=== PATIENT | female | born 1965 | race American Indian/Alaskan Native ===

== ENCOUNTER 2017-01-30 06:06 | Day surgery (SDC) | payer MEDICAID ==
--- NOTE | 2017-01-30 07:25 | Anesthesia Consultation ---
Anesthesia Consult and Med Hx Date of service: 01/30/17 - Airway Anesthetic Teeth Evaluation: Good ROM Head & Neck: Adequate Mental/Hyoid Distance: Adequate Mallampati Class: Class III Intubation Access Assessment: Possibly Difficult - Pre-Operative Health Status ASA Pre-Surgery Classification: ASA3 Proposed Anesthetic Plan: MAC - Cardiovascular System Hx Hypertension: Yes - Endocrine Hx Renal Disease: No (lupus) Hx Non-Insulin Dependent Diabetes: Yes - Other Systems Hx Obesity: Yes (BMI 49.9)
[2017-01-30] MEDS ORDERED: DIPRIVAN 10 MG/ML IV ONE ×3 (07:26→11:18)
--- NOTE | 2017-01-30 07:26 | Anesthesia Day of Surgery ---
Anesthesia Day of Surgery - Day of Surgery Patient Examined: Yes Patient H&P Reviewed: Yes Patient is NPO: Yes Beta Blockers: Yes
[2017-01-30] MEDS ORDERED: NACL 0.9% 1000 ML 1,000 ML IV SCH (08:00)
--- NOTE | 2017-01-30 08:34 | Operative Report ---
Operative Report Operative Report: OPERATIVE REPORT - EGD DATE 01/30/17 SURGERY: Upper endoscopy. SURGEON: Velma Burks M.D. PRE OP DX: dyspepsia POST OP DX: hiatal hernia TYPE OF ANESTHESIA: MAC. ESTIMATED BLOOD LOSS: None. COMPLICATIONS: None. SPECIMENS REMOVED: None. FINDINGS: 1. Small hiatal hernia. 2. Otherwise, normal esophagus, stomach and first portion of duodenum. INDICATIONS:INDICATION FOR PROCEDURE: Patient is a 51-year-old female with a long history of morbid obesity. She is planned to have a weight loss procedure and is here for preoperative planning EGD. We are looking for any pathology that will delay or prohibit her procedure. PROCEDURE DETAILS: After consent was reviewed, patient was taken back to the operating room where patient was placed in the left lateral decubitus position and a bite block was placed in the mouth. After a time-out was called, MAC anesthesia was initiated. I then passed the endoscope into her oropharynx, into her esophagus, visualized the entire esophagus, which was all within normal limits. I then visualized the stomach and the first portion of the duodenum and there were no abnormalities I could clearly visualize. I then retroflexed the scope in the stomach and visualized the hiatus and I could see a small hiatal hernia. I then desufflated the stomach and removed the endoscope. Patient tolerated procedure well and was transferred to recovery room in good and stable condition.
--- NOTE | 2017-01-30 08:37 | Discharge Summary ---
Providers - Providers Date of discharge: 01/30/17 Attending physician: KEMI BECK Hospitalization Condition: Good Procedures: egd Disposition: DC-01 TO HOME OR SELFCARE Core Measure Documentation - Palliative Care Palliative Care/ Comfort Measures: Not Applicable - Core Measures Any of the following diagnoses?: none Exam - Physical Exam Narrative exam: unchanged from pre-op - Constitutional Vitals: Temp Pulse Resp BP Pulse Ox 97.3 F L 68 16 140/88 98 01/30/17 07:59 01/30/17 07:59 01/30/17 07:59 01/30/17 07:59 01/30/17 07:59 Plan Activity: no restrictions Weight Bearing Status: Full Weight Bearing Diet: regular
--- NOTE | 2017-01-30 08:54 | Post Anesthesia Evaluation ---
- Post Anesthesia Evaluation Patient Participated: Yes Airway Patent: Yes Stable Respiratory Function: Yes Nausea/Vomiting: No Temp > 96.8F: Yes Pain Manageable: Yes Adequeate Hydration: Yes Anesthesia Complications: No Block Receding Appropriately: Not Applicable Patient on Ventilator: No
[2017-01-30 09:16] VITALS: BP 159/97
== END 2017-01-30 06:07 | disposition home or self-care (01) ==
LOC: GIO 06:06
PROVIDERS: ATTEND Surgery
DX: K44.9 Diaphragmatic hernia without obstruction or gangrene (principal); K21.9 Gastro-esophageal reflux disease without esophagitis; E11.9 Type 2 diabetes mellitus without complications; I10 Essential (primary) hypertension; E78.00 Pure hypercholesterolemia, unspecified; M06.9 Rheumatoid arthritis, unspecified; E66.01 Morbid (severe) obesity due to excess calories; Z68.42 Body mass index [BMI] 45.0-49.9, adult; Z79.899 Other long term (current) drug therapy; Z79.84 Long term (current) use of oral hypoglycemic drugs
CPT/HCPCS: 43235; 82962; J2704; J7030

== ENCOUNTER 2017-02-06 12:00 | Inpatient (IN) | payer MEDICAID ==
[2017-02-07] MEDS ORDERED: VERSED IV NR (06:00)
[2017-02-07] MEDS ORDERED: TRANSDERM-SCOP TD NR ×2 (06:00→07:00)
[2017-02-07] MEDS ORDERED: PEPCID IV NR (06:00)
[2017-02-07] MEDS ORDERED: NACL 0.9% 1000 ML 1,000 ML IV SCH (06:00)
[2017-02-07] MEDS ORDERED: PEPCID IV SCH (06:18)
[2017-02-07] MEDS ORDERED: NACL BACTERIOSTATIC INFILTRATI ONE (06:35)
[2017-02-07] MEDS ORDERED: FLAGYL 500 MG/100 ML 500 MG/100 ML BAG IV NR (07:00)
[2017-02-07] MEDS ORDERED: LOVENOX SUB-Q NR (07:00)
[2017-02-07] MEDS ORDERED: ANCEF/STERILE WATER 2 GM/20 ML IV NR (07:00)
--- NOTE | 2017-02-07 07:11 | Anesthesia Consultation ---
Anesthesia Consult and Med Hx Date of service: 02/07/17 - Airway Anesthetic Teeth Evaluation: Good ROM Head & Neck: Adequate Mental/Hyoid Distance: Adequate Mallampati Class: Class II Intubation Access Assessment: Probably Good - Pulmonary Exam CTA: Yes - Cardiac Exam Cardiac Exam: RRR - Pre-Operative Health Status ASA Pre-Surgery Classification: ASA3 Proposed Anesthetic Plan: General - Pulmonary Hx Smoking: Yes (smoked for 30 years,quit 2 months ago) Hx Asthma: Yes Hx Sleep Apnea: Yes (no cpap needed) - Cardiovascular System Hx Hypertension: Yes ( 5 years) Hx Peripheral Vascular Disease: No - Gastrointestinal Hx Gastroesophageal Reflux Disease: Yes (prn omeprazole) - Endocrine Hx Renal Disease: No (lupus) Hx Non-Insulin Dependent Diabetes: Yes - Hematic Hx Anemia: No Hx Sickle Cell Disease: Yes (Trait) - Other Systems Hx Cancer: No Hx Obesity: Yes (BMI 49.9)
--- NOTE | 2017-02-07 07:12 | Anesthesia Day of Surgery ---
Anesthesia Day of Surgery - Day of Surgery Patient Examined: Yes Patient H&P Reviewed: Yes Patient is NPO: Yes Beta Blockers: No (Did not take atenolol today.)
[2017-02-07] MEDS ORDERED: ZEMURON IV ONE (07:15)
[2017-02-07] MEDS ORDERED: DIPRIVAN 10 MG/ML IV ONE (07:15)
[2017-02-07] MEDS ORDERED: QUELICIN ONE (07:15)
[2017-02-07] MEDS ORDERED: XYLOCAINE MPF 2% ONE (07:15)
[2017-02-07] MEDS ORDERED: DILAUDID ONE (07:15)
[2017-02-07] MEDS ORDERED: WATER FOR IRRIG STERILE IR ONE (07:34)
[2017-02-07] MEDS ORDERED: ZOFRAN IV PRN ×2 (08:00→10:00)
[2017-02-07] MEDS ORDERED: NORCO 5/325 PO PRN (08:00)
[2017-02-07] MEDS ORDERED: NACL 0.9% IR ONE ×2 (08:23→08:24)
[2017-02-07] MEDS ORDERED: XYLOCAINE 1% 20 mL INFILTRATI ONE (08:24)
[2017-02-07] MEDS ORDERED: MARCAINE-EPI/PF 0.5%-1:200,000 INFILTRATI ONE (08:24)
[2017-02-07] MEDS ORDERED: NACL 0.9% 1000 ML 1,000 ML ONE (08:57)
[2017-02-07] MEDS ORDERED: APRESOLINE IV PRN (09:00)
[2017-02-07] MEDS ORDERED: NORCO PO PRN (09:00)
[2017-02-07] MEDS ORDERED: DILAUDID IV PRN (09:00)
[2017-02-07] MEDS ORDERED: D50W (25GM) Syringe IV PRN (09:00)
[2017-02-07] MEDS ORDERED: ROBINUL ONE (09:38)
[2017-02-07] MEDS ORDERED: NEOSTIGMINE ONE (09:38)
--- NOTE | 2017-02-07 09:53 | Operative Report ---
Operative Report Operative Report: Operative Report DATE OF PROCEDURE: 02/07/17 SURGEON: Velma Burks M.D. INVESTMENT REPRESENTATIVE: Neno Vivar CSA PREOPERATIVE DIAGNOSIS: Morbid obesity. POSTOPERATIVE DIAGNOSES: Morbid obesity PROCEDURES PERFORMED: 1. Laparoscopic gastric bypass. 2. EGD. ANESTHESIA: General endotracheal tube intubation. SPECIMENS: None. ESTIMATED BLOOD LOSS: Less than 10 mL. FINDINGS: Normal anatomy. COMPLICATIONS: None. INDICATION: is a 51-year-old female with history of morbid obesity, history of diabetes. She signed informed consent and expressed understanding of risks and benefits. DESCRIPTION OF PROCEDURE: Patient was brought to the OR suite, laid in supine position. Bilateral lower extremity SCDs were placed. General anesthesia was induced via successful endotracheal tube intubation. Patient's abdomen was prepped and draped in sterile fashion. Using Optiview technique, a 12-mm trocar was placed into the abdominal cavity under direct vision. There was noted to be no gross injury to any intraabdominal structures. 4 working trocars were placed under direct visualization, 12 mm in the right mid abdomen mid clavicular line and three 5-mm trocars in the right upper quadrant, epigastric, left upper quadrant At this time, the ligament of Treitz identified and followed down approximately 30 cm and the jejunum was transected. The distal segment of jejunum was then traced for approximately 75 cm and a stable [id number] jejunojejunostomy was performed. The common enterotomy was closed with 2 firings of the endoscopic stapler. The mesenteric defect was closed with running Surgidac suture. This anastomosis was found to be patent without kink, obstruction or bleeding. At this time, the patient was placed in steep reverse Trendelenburg position. A liver retractor was placed through the epigastric port to elevate the left lateral lobe of the liver. A small gastric pouch was formed. The Theresa limb was then brought in an antegastric antecolic fashion and secured with 2 stay sutures to the gastric pouch. After this, the enterotomies were made with Harmonic scalpel, and a wigy-tn-lhty stapled gastrojejunostomy was performed with a mechanical stapler. After this, a 2-layer running closure using absorbable v-lock suture were done, the first being mucosal approximation prior to completion of the first layer. The anesthesia passed and an EGD scope beyond the anastomosis to act as a stent. The first layer was completed, the second was then performed. After this, the EGD was retracted slightly. A bowel clamp was placed in a proximal Theresa limb. The anastomosis was submerged under saline. Via intraluminal EGD insufflation, there was noted be no bubbles in the saline indicating an airtight anastomosis. There was noted to be no obstruction or bleeding intraluminally in the pouch or the anastomosis. At this time, the scope was removed. The saline was aspirated. Tiseel was placed over the anastomosis. All trocars were removed under direct visualization and the abdomen was then desufflated. The skin incisions were closed with 4-0 Monocryl followed by Dermabond dressings. Patient was awoken and taken to recovery in stable condition. All counts were correct.
[2017-02-07] MEDS ORDERED: PLAQUENIL PO SCH (10:00)
[2017-02-07] MEDS ORDERED: MYLICON PO PRN (10:00)
[2017-02-07] MEDS ORDERED: TENORMIN PO SCH (10:00)
[2017-02-07] MEDS ORDERED: PROVENTIL IH ONE ×2 (10:00→10:15)
[2017-02-07] MEDS ORDERED: NON-FORMULARY (Cyclosporine [Restasis 0.05%] 1 DROP) OP SCH (10:00)
[2017-02-07] MEDS ORDERED: REGLAN IV PRN (11:00)
[2017-02-07] MEDS: DILAUDID IV PRN ×2 (11:00→14:07)
[2017-02-07] MEDS ORDERED: APRESOLINE IV ONE (11:15)
--- NOTE | 2017-02-07 11:52 | Post Anesthesia Evaluation ---
- Post Anesthesia Evaluation Patient Participated: Yes Airway Patent: Yes Stable Respiratory Function: Yes Temp > 96.8F: Yes Pain Manageable: Yes Adequeate Hydration: Yes Anesthesia Complications: No
[2017-02-07] MEDS: LACTATED RINGERS 1,000 ML IV SCH (14:07)
--- NOTE | 2017-02-07 16:09 | Post Anesthesia Evaluation ---
- Post Anesthesia Evaluation Patient Participated: Yes Airway Patent: Yes Stable Respiratory Function: Yes Temp > 96.8F: Yes Pain Manageable: Yes Adequeate Hydration: Yes Anesthesia Complications: No
[2017-02-07] MEDS: TORADOL IV SCH (16:49)
[2017-02-07] MEDS: ANCEF/NS 1 GM/50 ML 1 GM/50 ML BAG IV SCH (16:51)
[2017-02-07] MEDS: FLAGYL 500 MG/100 ML 500 MG/100 ML BAG IV SCH (16:56)
[2017-02-07] MEDS: DITROPAN PO SCH (22:25)
[2017-02-07] MEDS: PAMELOR PO SCH (22:26)
[2017-02-07] MEDS: MORPHINE IV PRN (22:34)
[2017-02-08] MEDS: LACTATED RINGERS 1,000 ML IV SCH (02:17)
[2017-02-08] MEDS: FLAGYL 500 MG/100 ML 500 MG/100 ML BAG IV SCH ×2 (02:24→10:14)
[2017-02-08] MEDS: ANCEF/NS 1 GM/50 ML 1 GM/50 ML BAG IV SCH (03:23)
[2017-02-08] MEDS: MORPHINE IV PRN (04:42)
[2017-02-08 04:51] LABS: Basophils % (Auto) 0.8 % (0.0-1.8); Eosinophils % (Auto) 0.2 % (0.0-4.3); Hematocrit 38.2 % (30.3-42.9); Hemoglobin 12.9 gm/dl (10.1-14.3); Mean Corpuscular HGB Conc 34 % (30-34); Mean Corpuscular Hemoglobin 30 pg (28-32); Mean Corpuscular Volume 90 fl (79-97); Platelet Count 287 K/mm3 (140-440); Red Blood Count 4.25 M/mm3 (3.65-5.03); Red Cell Distribution Width 15.6 % (13.2-15.2); White Blood Count 9.5 K/mm3 (4.5-11.0)
[2017-02-08 05:07] LABS: Alanine Aminotransferase 30 units/L (7-56); Albumin 3.5 g/dL (3.9-5); Albumin/Globulin Ratio 1.1 %; Alkaline Phosphatase 104 units/L (35-129); Anion Gap 16 mmol/L; BUN/Creatinine Ratio 8.75; Blood Urea Nitrogen 7 mg/dL (7-17); Calcium 8.2 mg/dL (8.4-10.2); Carbon Dioxide 25 mmol/L (22-30); Chloride 102.1 mmol/L (98-107); Glucose 102 mg/dL (65-100); Potassium 3.8 mmol/L (3.6-5.0); Sodium 139 mmol/L (137-145); Total Protein 6.6 g/dL (6.3-8.2)
[2017-02-08 08:19] VITALS: BP 127/78
[2017-02-08] MEDS ORDERED: LOVENOX SUB-Q SCH (10:00)
[2017-02-08] MEDS: DITROPAN PO SCH (10:10)
[2017-02-08] MEDS: TORADOL IV SCH (10:12)
[2017-02-08] MEDS: PAMELOR PO SCH (10:13)
--- NOTE | 2017-02-08 11:31 | Discharge Summary ---
Providers - Providers Date of Admission: 02/07/17 05:41 Attending physician: KEMI BECK 02/07/17 06:18 Consult to Anesthesiology [CONS] Routine Consulting Provider: JIMMY ANESTHESIA MADINA SINGH Reason For Exam: SURGERY TODAY Primary care physician: ENTRY LEVEL DRAFTER Hospitalization Reason for admission: lap gastric bypass Condition: Good Procedures: laparoscopic gastric bypass Hospital course: 51 y.o. F admitted for lap gastric bypass. She tolerated the procedure well. On POD 1 she tolerated liquids and ambulated. Her pain was controlled prior to discharge. Disposition: DC-01 TO HOME OR SELFCARE Core Measure Documentation - Palliative Care Palliative Care/ Comfort Measures: Not Applicable - Core Measures Any of the following diagnoses?: none Exam - Physical Exam Narrative exam: VSS Gen: A+Ox3 Resp: equal rise and fall of chest Abd: soft, obese, tender at incision sites. no rebound no guarding. incisions cdi - Constitutional Vitals: Temp Pulse Resp BP Pulse Ox 98.5 F 90 20 127/78 92 02/08/17 07:54 02/08/17 10:10 02/08/17 10:12 02/08/17 10:10 02/08/17 07:54 Plan Activity: other (no lifting >15lbs ) Diet: clear liquids (sugar free clears ) Wound: other (May shower in 2 days ) Additional Instructions: Wound Care appt. Friday Follow up with: PRIMARY MD ELISA [Primary Care Provider] - 7 Days
[2017-02-08] MEDS ORDERED: PNEUMOVAX 23 IM ONE (12:00)
[2017-02-08] MEDS ORDERED: Fluarix Quad 2017-2018(36 MOS+) IM ONE (12:00)
== END 2017-02-08 14:45 | disposition home or self-care (01) | DRG 621 ==
LOC: 3A 02-07 05:41 → 3B-SURG 02-07 12:01
PROVIDERS: ADMIT Surgery; ATTEND Surgery
PROC: 0D164ZA Bypass Stomach to Jejunum, Percutaneous Endoscopic Approach (ICD-10-PCS; principal; 2017-02-07)
PROC: 3E0234Z Introduction of Serum, Toxoid and Vaccine into Muscle, Percutaneous Approach (ICD-10-PCS; 2017-02-08)
DX: E66.01 Morbid (severe) obesity due to excess calories (principal); E11.9 Type 2 diabetes mellitus without complications; I10 Essential (primary) hypertension; K21.9 Gastro-esophageal reflux disease without esophagitis; G47.30 Sleep apnea, unspecified; Z87.891 Personal history of nicotine dependence; Z68.42 Body mass index [BMI] 45.0-49.9, adult; Z23 Encounter for immunization
CPT/HCPCS: 36415; 80053; 82962; 85025; 90686; 90732; 94760; 99406; A4217; C9250; J0330; J0360; J0690; J1170; J1650; J1885; J2250; J2270; J2704; J2710; J7030; J7120